=== PATIENT | female | born 1945 | race Caucasian/White ===

== ENCOUNTER 2017-06-27 10:05 | Emergency (ER) | payer MEDICARE, OTHER ==
[~2017-06-27] VITALS: Wt 90.6 kg
[2017-06-27] MEDS ORDERED: IBUPROFEN 600 MG TAB PO ONE (11:00)
[2017-06-27] MEDS ORDERED: CYCLOBENZAPRINE 10 MG TAB PO ONE (11:00)
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
--- NOTE | 2017-06-27 12:14 | RADRPT ---
PROCEDURE: CT thoracic spine without contrast CLINICAL INDICATION: Back pain. TECHNIQUE: CT scan of the thoracic spine [facility] was administered. One or more of the following dose reduction techniques were us ed: Automated exposure control, Adjustment of the mA and/or kV according to patient size, and/or use of iterative reconstruction technique. DOSE: CTDI = 16mGy and the DLP = 601mGy-cm. COMPARISON: None available FINDINGS: No acute thoracic vertebral fracture or subluxation is identified. No significant bony spinal canal or bony foraminal narrowing. Paraspinous soft tissues are grossly unremarkable. IMPRESSION: No acute thoracic vertebral compression fracture or subluxation. RPTAT: AA .Francisco Galeana MD, MD Date Time Electronically viewed and signed by .Francisco Galeana MD, MD on 06/27/2017 12:14 .T/
--- NOTE | 2017-06-27 12:18 | RADRPT ---
PROCEDURE: CT L-Spine. CLINICAL INDICATION: Back pain TECHNIQUE: A CT of the lumbar spine was performed on a multidetector CT scanner utilizing axial im ages from the thoracic lumbar junction through the lumbar sacral junction. Sagittal and coronal ref ormatted images were made. The CTDIvol is 19mGy and the DLP is 516mGycm. One or more of the followin g dose reduction techniques were used: Automated exposure control, Adjustment of the mA and/or kV ac cording to patient size, and/or use of iterative reconstruction technique. COMPARISON: None available. FINDINGS: No evidence of an acute lumbar vertebral compression fracture. L1-2: Mild to moderate disc height loss and discogenic degenerative endplate change. No significant disk protrusion, spinal canal stenosis or neural foraminal narrowing. Facet arthropathy. L2-3: Moderate disc height loss and discogenic degenerative endplate change. Facet arthropathy. Smal l disc bulge with mild bilateral foraminal narrowing. No significant spinal canal narrowing.. L3-4: Moderate to severe disc height loss. Circumferential disc bulge and facet arthropathy with mil d spinal canal narrowing. Moderate to severe bilateral foraminal narrowing. L4-5: Moderate to severe disc height loss and facet arthropathy. Moderate bilateral foraminal narrow ing. There is narrowing of the lateral recess bilaterally and moderate spinal canal stenosis. L5-1: Bulging of the posterior disc annulus and facet arthropathy. No significant spinal canal or fo raminal narrowing. . The paraspinous soft tissues are grossly unremarkable. Aortoiliac atherosclerosis. IMPRESSION: No acute lumbar compression fracture. Moderate to severe discogenic disease L2-3 through L4-5. See details in the findings. RPTAT: AA .Francisco Galeana MD, MD Date Time Electronically viewed and signed by .Francisco Galeana MD, MD on 06/27/2017 12:18 .T/
[2017-06-27] MEDS ORDERED: CYCL-319 PO (12:37)
[2017-06-27] MEDS ORDERED: IBUP-1542 PO (12:37)
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
== END 2017-06-27 13:07 | disposition home or self-care (01) ==
LOC: FTE 10:05
DX: M62.838 Other muscle spasm (principal); M62.830 Muscle spasm of back
CPT/HCPCS: 72125; 72128; 72131